=== PATIENT | female | born 1985 | race Caucasian/White ===

== ENCOUNTER 2021-11-27 11:38 | Emergency (ER) | payer OTHER ==
[2021-11-27] VITALS (9 sets, daily range): BP systolic 109–141; BP diastolic 74–89
[~2021-11-27] VITALS: Ht 175.3 cm; Wt 75.0 kg
[2021-11-27 12:19] LABS: URINE BILIRUBIN - DIPSTICK NEGATIVE (NEGATIVE); URINE BLOOD DIPSTICK NEGATIVE (NEGATIVE); URINE COLOR YELLOW; URINE GLUCOSE - DIPSTICK NEGATIVE (NEGATIVE); URINE KETONE NEGATIVE (NEGATIVE); URINE LEUK ESTERASE NEGATIVE (NEGATIVE); URINE PROTEIN - DIPSTICK NEGATIVE (NEG-TRACE); URINE SPECIFIC GRAVITY >=1.030; URINE UROBILINOGEN - DIPSTICK 0.2 E.U./dL (0.2)
[2021-11-27 12:22] LABS: URINE NITRITE - DIPSTICK NEGATIVE (Negative)
[2021-11-27 12:48] LABS: HEMATOCRIT 35.8 % (37.0-47.0); HEMOGLOBIN 11.4 g/dl (12.0-16.0); MEAN CELL VOLUME 81.2 fL CALC (80.0-100.0); MEAN CORPUSCULAR HGB 25.9 pG CALC (26.0-32.0); MEAN CORPUSCULAR HGB CONC 31.8 g/dL CAL (32.0-36.0); NEUT# 2.53 thou/uL (2.00-7.15); RED BLOOD COUNT 4.41 mill/uL (4.20-5.60); RED CELL DISTRI WIDTH 14.1 % (11.5-15.5)
[2021-11-27 12:53] LABS: ALBUMIN 4.2 g/dL (3.2-5.0); ALKALINE PHOSPHATASE 79 u/l (38-126); BUN 11 mg/dL (7-17); BUN/CREATININE RATIO 21 (12-20 (CALC)); CARBON DIOXIDE 20 mmol/l (22-30); CHLORIDE 109 mmol/l (95-108); CREATININE 0.5 mg/dL (0.5-1.0); GFR > 60 ML/MIN (>=60 (CALC)); GFR FOR AFR.AMER. > 60 ML/MIN (>=60 (CALC)); LIPASE 48 u/l (23-300); SODIUM 136 mmol/l (137-146); TOTAL PROTEIN 7.5 g/dL (6.3-8.2)
[2021-11-27 12:54] LABS: ANION GAP 12 (6-22 (CALC)); BILIRUBIN, TOTAL 0.5 mg/dL (0.0-1.4); POTASSIUM 4.7 mmol/l (3.5-5.1); SGOT/AST 99 u/l (14-36)
[2021-11-27 13:09] LABS: BETA-HCG, QUANT(RESULT NUMBER) <2 mIU/mL
== END 2021-11-27 16:47 | disposition home or self-care (01) ==
LOC: ED 11:38
PROVIDERS: Family Medicine
DX: R10.84 Generalized abdominal pain (principal)
CPT/HCPCS: Q9967